=== PATIENT | female | born 1980 | race Caucasian/White ===

== ENCOUNTER → 2021-06-03 | Outpatient (CLI) | payer OTHER ==
[~2021-06-03] MED LIST: CYCL10TA2 PO; HYDR-2769 PO
--- NOTE | 2021-06-03 13:09 | PDOC1 ---
INITIAL PAIN CONSULT DATE OF SERVICE: DOS: DATE: 06/03/21 TIME: 13:01 CHIEF COMPLAINT: Chief Complaint: Low back and left greater than right lower extremity pain HISTORY OF PRESENT ILLNESS: 41-year-old female presents with history of pain low back left lower extremity greater than right present since 2011 for many years gradually increasing over the past 1 year or so. Patient reports is not from any specific injury or accident she is aware but has increased pain in the low back and the left lower extremity posterior gluteus lateral thigh anterior thigh medial thigh worse with walking standing changing positions better with sitting or resting. Patient reports that it is not awaken her from sleep generally feels better with laying down and does not affect her bowel bladder control does affect her ability to walk although she is not use any assistive devices to ambulate. Patient has had physical therapy as well as epidural injections in the past at an outside facility 2014 through 2018 which were very helpful with each of these. Patient has been doing physical therapy exercises that she learned from those sessions but is not been decreasing the pain at this time. 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 Patient is been taking [place] as well as Flexeril also Percocet and Mobic which are helpful only minimally. Patient scribes pain is intermittent intensity with numbness radiating pain in the low back sharp stabbing throbbing shooting in the back shooting in the leg radiating cramping and aching the low back as well as radiating into the left lower extremity as discussed. Patient also has some pain in the base the neck and the right shoulder and right upper extremity in a radicular fashion which is secondary as she rates her low back and left leg pain is much more problematic. Patient has cervical and lumbar spine films showing degenerative disc changes most significantly at the lower L4-5 and L5-S1 levels with retrolisthesis of L5 and S1. PAST MEDICAL HISTORY: PMH: Arthritis, bone spurs PREVIOUS SURGERIES: Past Surgical Hx: CURRENT MEDICATIONS: Current Meds: Active Scripts Medications Dose Route/Sig Max Daily Dose Days Date Category Cyclobenzaprine Hcl 10 Mg Tablet 1 Tab PO BID 06/03/21 Reported Hydrocodone-Apap 10-325 (Hydrocodone Bit/Acetaminophen) 1 Tab Tablet 1 Tab PO BID PRN 06/03/21 Reported FAMILY HISTORY: Family Hx: Cancer, heart disease, diabetes SOCIAL HISTORY: Social Hx: Patient is alcohol 2-5 beverages a week does not smoke says any illegal illicit recreational drugs is single lives locally in [facility] REVIEW OF SYSTEMS: ROS: Positive for those items mentioned in history of present illness, all systems are reviewed, otherwise negative ,and are complete full and well-documented on patient's chart. PHYSICAL EXAM: VS: Blood pressure is 137/88 pulse 65 respirations 18 temperature is 98.3 F height is 5 feet 7 inches weight is 238 pounds PE: PHYSICAL EXAMINATION: GENERAL: The patient is awake, alert, oriented, appropriate, very pleasant in demeanor. HEENT: Shows normocephalic, atraumatic. Extraocular movements are intact and symmetrical. Oral cavity: Mucous membranes moist and pink. Dentition is intact . NECK: Shows anterior throat supple without palpable lymphadenopathy noted. Swallow reflex symmetrical. CHEST: Shows normal on inspection. Breath sounds are clear bilaterally, no rales rhonchi or wheezes auscultated. HEART: Shows S1, S2 clear. No murmurs auscultated. ABDOMEN: Soft, nontender, nondistended, obese. No palpable organomegaly is noted. BACK: Shows spine grossly in the midline. Normal-appearing cervical lordotic curvature. Cervical paraspinous muscles show symmetrical inspection of the p atient is moderate tenderness diffusely in the inferior aspect of the paraspinous muscular more right than left also the superior medial trapezius on the right side. Patient shows good rotation motion cervical spine with lateral as well as full extension full forward flexion without significant difficulty. There is slightly increased thoracic kyphosis, some minor flattening of the lumbar lordotic curvature. Lumbar paraspinous muscles show symmetrical on inspection, on palpation shows some moderate tenderness diffusely throughout the upper, middle and lower distribution of the paraspinous muscles bilaterally and also into the lower thoracic paraspinous musculature, firm and tender, but without specific trigger points, without radiation of pain. The patient has good rotational motion of the lumbar spine, both laterally as well as extension and flexion without significant difficulty. No tenderness over the spinous processes, sacrum or sacroiliac regions. EXTREMITIES: Lower extremities show deep tendon reflexes 1+ in the patellar and tendo calcaneus tendons. Motor exam is 5 on a scale of 5 with right dorsiflexion, extension, quadriceps and hamstring flexion and 4/5 on the left. Peripheral pulses are 1+ posterior tibial. No peripheral edema is noted bilater ally. Lower extremities are warm and dry to touch, equal in color and appearance. Straight leg raise noted to be positive on the left at approximate 45 degrees decreased with knee flexion, right side is negative. Gaenslen's and Francisco's maneuvers are negative bilateral as well. The patient is able to stand, stand on her toes without significant difficulty or loss of balance, w alks with a normal-appearing gait does not appear to favor the right or left lower extremity significantly is not using any assistive devices to ambulate. Upper extremity show deep tendon reflexes 2+ in the bicep triceps tendons, motor exam strong with silver solderer strength rated 5 out of 5 as is bicep and tricep flexion. Shoulder shrug strong intact without loss of strength on resistance bilaterally. SKIN: Shows warm and dry, good turgor. No edema. No sores, rashes or bruising throughout. IMPRESSION: Impression: 41-year-old female with long history low back left lower extremity pain and radicular fashion Neck and right upper extremity pain in a radicular fashion Plain films x-rays lumbar and cervical spines as noted Arthritis Plan: Options were discussed with the patient including conservative medical management continued physical therapies and interventional techniques. Patient is currently doing physical therapy exercises taking oral analgesics without significant improvement, would like to pursue interventional techniques as these have worked well for her in the past. We discussed a lumbar epidural steroid injection using description as well as anatomical models to describe the procedure. Patient will wait for preauthorization with insurance provider once the team will return for translaminar epidural steroid injection at the L4-5 level for her L4-5 left-sided radiculopathy. GABRIELA GALLARDO MD Jun 03, 2021 13:09
== END ==
LOC: PNCL 09:32
PROVIDERS: ATTEND Anesthesiology
DX: M54.5 Low back pain (principal); M79.661 Pain in right lower leg
CPT/HCPCS: 99214; G0463

== ENCOUNTER → 2021-10-28 | Outpatient (CLI) | payer OTHER ==
[~2021-10-28] MED LIST changes: +CYCL10TA19 PO; -CYCL10TA2 PO; +IOHEXOL 180 MG/ML 10 ML VIAL. ONE; +methylPREDNISolone ACETATE 80 MG/ML VIAL. ONE
--- NOTE | 2021-10-28 14:46 | PDOC ---
Progress Note - Pain Clinic Date of Service: DOS: DATE: 10/28/21 TIME: 14:41 Diagnosis: Dx: Lumbar radiculopathy with lumbar degenerative disc disease History or Present Illness: HPI: 41-year-old female returns for follow-up status post evaluation and preauthorization for lumbar epidural steroid injection patient reports still significant pain in her low back and into the left lower extremity posterior gluteus posterior lateral thigh lateral anterior thigh anteromedial thigh medial lower leg to the foot patient reports some pain on the right side mostly on the worst on the left patient reports is aching and sharp tight shooting Burning stabbing radiating constant can be severe and unbearable with walking and standing. Patient reports new finding of pain base the neck and shoulders with pain rating mostly in the right upper extremity patient reports this is gotten much worse since she was last here does have a MRI scan ordered but is not been performed as of yet. Patient reports is radiating to the right upper extremity with some tingling and numbness in the right arm as well patient rates that as a 9 on scale 10 at all times worse with activity repetitive motions reaching overhead with the right hand as well. Patient reports no bowel or bladder incontinence. Physical Exam: VS: Blood pressure is 126/86 pulse 81 respirations 18 temperature 98.0 F weight is 230 pounds PE: PHYSICAL EXAMINATION: GENERAL: The patient is awake, alert, oriented, appropriate, very pleasant in demeanor HEENT: Shows normocephalic, atraumatic. Extraocular movements are intact and symmetrical. Oral cavity: Mucous membranes moist and pink. Dentition is intact. NECK: Shows anterior throat supple without palpable lymphadenopathy noted. Swallow reflex symmetrical. CHEST: Shows normal on inspection. Breath sounds are clear bilaterally, no rales or rhonchi. HEART: Shows S1, S2 clear. No murmurs auscultated. ABDOMEN: Soft, nontender, nondistended. No palpable organomegaly is noted. BACK: Shows spine grossly in the midline. Normal-appearing cervical lordotic curvature. Cervical paraspinous muscles show symmetrical with inspection, on palpation some moderate tenderness diffusely bilaterally diffusely without significant radiation more on the right than the left as well as into the superior medial trapezius. Patient shows full rotation of motion cervical spine both laterally as well as extension and flexion without significant difficulty. There is slightly increased thoracic kyphosis, some minor flattening of the lumbar lordotic curvature. Lumbar paraspinous muscles show symmetrical on inspection, on palpation shows some moderate tenderness diffusely throughout the upper, middle and lower distribution of the paraspinous muscles without specific trigger points, without radiation of pain. The patient has good rotational motion of the lumbar spine, both laterally as well as extension and flexion without significant difficulty. EXTREMITIES: Lower extremities show deep tendon reflexes 1+ in the patellar and tendo calcaneus tendons. Motor exam is 4 on a scale of 5 with right dorsiflexion, extension, quadriceps and hamstring flexion and 5/5 on the left. Peripheral pulses are 1+ posterior tibial. No peripheral edema is noted bilaterally. Lower extremities are warm and dry to touch, equal in color and appearance. 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 Shoulder shrug strong and intact without loss of strength on resistance bilaterally. SKIN: Shows warm and dry, good turgor. No edema. No sores, rashes or bruising throughout. Procedure: Procedure: Options were discussed with the patient. Patient's old chart was reviewed as her current medication regimen updated current review of systems updated today as well. We will proceed with a lumbar epidural steroid injection today with fluoroscopic guidance. Risks were discussed including but not limited to: Bleeding, infection, possibility of epidural hematoma and subsequent neurological compromise, dural puncture, headaches, spinal cord and/or nerve damage, side effects of steroid medication, and poor results regarding pain control. Patient understands and wished to proceed. Patient will return to the clinic in approximately 2 weeks for follow-up, was counseled as to return appointment, activity level, and side effects to be aware of. Medication Injected: Med Injected: Procedure is lumbar epidural steroid injection under local anesthetic using sterile prep and drape at the L4-5 level using C-arm fluoroscopic guidance in both AP and lateral views medications injected is 120 mg Depo-Medrol +10mL preservative-free normal saline and 2 mL contrast- condition at discharge is stable patient tolerated procedure well had no complications. Condition at Discharge: Condition at Discharge: Condition at discharge stable, patient tolerated procedure well and had no complications. GABRIELA GALLARDO MD Oct 28, 2021 14:46
--- NOTE | 2021-10-28 14:47 | PDOC4 ---
Procedure Note: ICD 10 Code: ICD 10 Code: M54.16 M51.36 Procedure Note: Patient was consented for lumbar epidural steroid injection fluoroscopic guidance. Risks were discussed including but not limited to: Bleeding, infection, possibility of epidural hematoma and subsequent neurological compromise, dural puncture, headaches, spinal cord and/or nerve damage, side effects of steroid medication, and poor results regarding pain control. Patient understands and wished to proceed. Procedure is lumbar epidural steroid injection under local anesthetic using sterile prep and drape at the L4-5 level using C-arm fluoroscopic guidance in both AP and lateral views medications injected is 120 mg Depo-Medrol +10mL preservative-free normal saline and 2 mL contrast- condition at discharge is stable patient tolerated procedure well had no complications. GABRIELA GALLARDO MD Oct 28, 2021 14:47
== END | disposition home or self-care (01) ==
LOC: PNCL 14:07
PROVIDERS: ATTEND Anesthesiology
DX: M51.16 Intervertebral disc disorders with radiculopathy, lumbar region (principal); Z79.899 Other long term (current) drug therapy
CPT/HCPCS: 62323; J1040; Q9965

== ENCOUNTER → 2021-11-03 | Outpatient (CLI) | payer OTHER ==
[~2021-11-03] MED LIST changes: -IOHEXOL 180 MG/ML 10 ML VIAL. ONE; -methylPREDNISolone ACETATE 80 MG/ML VIAL. ONE
--- NOTE | 2021-11-03 13:37 | NUR ---
Pt. called clinic today, she cannot get off work to fulfill her office visit today post epidural steroid injection treatment. Pt. states she is 100% improved. Able to sleep and work much better. Pt. has had no side effects from the treatment or any new health issues. Pt. has a follow up appt in early Nov. and was instructed to cancel that appt if she is still doing this much better from the [facility]. We will still, in the meantime, request an additional PA from her insurance carrier for a second [facility] if needed. Pt. JANES. Pt. transferred to Dr. Martinez for a phone interview. Walter Gudino RN
--- NOTE | 2021-11-03 13:41 | PDOC ---
Progress Note - Pain Clinic Date of Service: DOS: DATE: 11/03/21 TIME: 13:38 Diagnosis: Dx: Lumbar radiculopathy with lumbar degenerative disc disease History or Present Illness: HPI: Telemedicine visit today with patient's identity verified with full date of as well as full name, total time spent 14 minutes and 41-year-old female follow-up status post lumbar epidural steroid injection x1. Patient reports near 100% improvement in her right low back and left lower extremity pain is increasing her activity with distance walking doing household activities work activities sleeping better at night traveling with greater ease and comfort patient reports still some pain in the low back left lower extremity posterior gluteus posterior lateral thigh lateral anterior thigh and anterior medial lower leg but much improved again near 100%, with no new motor or sensory deficits no bowel or bladder incontinence. Patient reports she has been decreasing her hydrocodone significantly and has had a few days where she is not used none of it also is increasing her activity with greater standing for longer periods of walking performing her work activities much greater ease and again sleeping much better at night. Patient is very pleased with her progress thus far. Patient reports still significant radiation of pain in an L4-5 dermatomal distribution on the left and we will preauthorize patient for a second lumbar epidural steroid injection patient doing very well after the first injection but with still some persistent pain in the left L4-5 dermatomal distribution in a radicular fashion although significantly improved overall. Once approved, patient will return for a translaminar approach L4-5 level lumbar epidural steroid injection with fluoroscopic guidance. In the meantime, patient will continue with stretching strength exercises daily and oral analgesics as necessary. Physical Exam: PE: GABRIELA GALLARDO MD Nov 03, 2021 13:41
== END | disposition home or self-care (01) ==
LOC: PNCL 13:36
PROVIDERS: ATTEND Anesthesiology
DX: M51.16 Intervertebral disc disorders with radiculopathy, lumbar region (principal); Z79.899 Other long term (current) drug therapy
CPT/HCPCS: 99212; G0463

== ENCOUNTER → 2021-12-10 | Outpatient (CLI) | payer OTHER ==
[~2021-12-10] MED LIST changes: +DEXAMETHASONE PRES.FREE 10 MG/ML VIAL. ONE; +IOHEXOL 180 MG/ML 10 ML VIAL. ONE
--- NOTE | 2021-12-10 13:38 | PDOC ---
Progress Note - Pain Clinic Date of Service: DOS: DATE: 12/10/21 TIME: 13:34 Diagnosis: Dx: Lumbar radiculopathy with lumbar degenerative disc disease Cervical radiculopathy History or Present Illness: HPI: 41-year-old female returns for follow-up status post lumbar epidural steroid injection x1 patient reports did very well with that 100% improvement for period of time pain returned though over the past few weeks with pain in the low back and left lower extremity posterior gluteus posterior lateral thigh lateral anterior thigh anteromedial thigh on the left side patient reports also new pain at the base of the neck and right upper extremity pain radiating the right arm in the posterior deltoid triceps biceps into the forearm and hand which is becoming much worse with numbness and tingling in the hand as well patient reports that the pain in the low back is on the left side the shoulders on the right side as well as the neck and right arm patient reports her pain is a 9 on scale 10 is worse over the past week 6-7 on average of 3 to [place] is a 7 today patient scribes aching dull tight and sharp shooting in the leg shooting in the right arm burning and cramping in the base of neck and shoulder as well as in the low back. Patient reports no loss of motor function with significant fatigability with the left leg as well as the right arm with repetitive motions reaching overhead with the right arm and reaching forward with weightbearing. Patient reports the pain is returning in the low back and left leg still not to baseline patient reports no bowel or bladder incontinence no loss of motor function with significant fatigability left lower extremity as well as the right upper extremity in the right upper extremity disturbing sleep more now in the leg and back. Patient reports her mobility was better after last injection note distance walking doing household activities work activities and try with greater ease and comfort as well sleeping better at night. Physical Exam: VS: Blood pressure is 128/85 pulse 87 respirations 16 temperature is 98.1 F height 5 feet 8 inches weight is 227 pounds. PE: PHYSICAL EXAMINATION: GENERAL: The patient is awake, alert, oriented, appropriate, very pleasant in demeanor HEENT: Shows normocephalic, atraumatic. Extraocular movements are intact and symmetrical. Oral cavity: Mucous membranes moist and pink. Dentition is i ntact. NECK: Shows anterior throat supple without palpable lymphadenopathy noted. Swallow reflex symmetrical. CHEST: Shows normal on inspection. Breath sounds are clear bilaterally, no rales or rhonchi. HEART: Shows S1, S2 clear. No murmurs auscultated. ABDOMEN: Soft, nontender, nondistended. No palpable organomegaly is noted. BACK: Shows spine grossly in the midline. Normal-appearing cervical lordotic curvature. Cervical paraspinous muscles show symmetrical inspection, palpation some moderate tenderness diffusely at the upper middle lower decrease the paraspinous muscles more to the right superior medial trapezius without trigger points but with significant tenderness on the right side. Patient shows good rotation motion cervical spine with lateral as well as full extension full forward flexion without significant increase in pain. There is slightly increased thoracic kyphosis, some minor flattening of the lumbar lordotic curvature. Lumbar paraspinous muscles show symmetrical on inspection, on palp ation shows some moderate tenderness diffusely throughout the upper, middle and lower distribution of the paraspinous muscles without specific trigger points, without radiation of pain. The patient has good rotational motion of the lumbar spine, both laterally as well as extension and flexion without significant difficulty. No tenderness over the spinous processes, sacrum or sacroiliac regions. EXTREMITIES: Lower extremities show deep tendon reflexes 1+ in the patellar and tendo calcaneus tendons. Motor exam is 5 on a scale of 5 with right dorsiflexion, extension, quadriceps and hamstring flexion and 4/5 on the left. Peripheral pulses are 1+ posterior tibial. No peripheral edema is noted bilaterally. Lower extremities are warm and dry to touch, equal in color and appearance. 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 Shoulder shrug is strong and intact without loss of strength on resistance bilaterally. SKIN: Shows warm and dry, good turgor. No edema. No sores, rashes or bruising throughout. Procedure: Procedure: Options discussed with patient. Patient's old chart was reviewed as her current medication regimen updated current review of systems updated today as well. We will proceed with a lumbar epidural steroid injection today with fluoroscopic guidance. Risks were discussed including but not limited to: Bleeding, infection, possibility of epidural hematoma and subsequent neurological compromise, dural puncture, headaches, spinal cord and/or nerve damage, side effects of steroid medication, and poor results regarding pain control. Patient understands and wished to proceed. Patient will return to the clinic in approximate 2 weeks for follow-up, was counseled as to return appointment, [place], and side effect to be aware of. We will order MRI scan cervical spine to better differentiate patient's right radicular quality pain. Patient also be given a note for work diagnosis and with excuse for attending her visit today. Medication Injected: Med Injected: Procedure is lumbar epidural steroid injection under local anesthetic using sterile prep and drape at the L4-5 level using C-arm fluoroscopic guidance in both AP and lateral views medications injected is 20 mg dexamethasone +10mL preservative-free normal saline and 2 mL contrast- condition at discharge is stable patient tolerated procedure well had no complications. Condition at Discharge: Condition at Discharge: Condition at discharge stable, paced tolerated the procedure well and had no complications. GABRIELA GALLARDO MD Dec 10, 2021 13:38
--- NOTE | 2021-12-10 13:39 | PDOC4 ---
Procedure Note: ICD 10 Code: ICD 10 Code: M54.16 M51.36 Procedure Note: Patient was consented for lumbar epidural steroid injection fluoroscopic guidance. Risks were discussed including but not limited to: Bleeding, infection, possibility of epidural hematoma and subsequent neurological compromise, dural puncture, headaches, spinal cord and/or nerve damage, side effects of steroid medication, and poor results regarding pain control. Patient understands and wished to proceed. Procedure is lumbar epidural steroid injection under local anesthetic using sterile prep and drape at the L4-5 level using C-arm fluoroscopic guidance in both AP and lateral views medications injected is 20 mg dexamethasone +10mL preservative-free normal saline and 2 mL contrast- condition at discharge is stable patient tolerated procedure well had no complications. GABRIELA GALLARDO MD Dec 10, 2021 13:39
== END | disposition home or self-care (01) ==
LOC: PNCL 12:49
PROVIDERS: ATTEND Anesthesiology
DX: M51.16 Intervertebral disc disorders with radiculopathy, lumbar region (principal); Z79.899 Other long term (current) drug therapy; Z88.8 Allergy status to other drugs, medicaments and biological substances
CPT/HCPCS: 62323; J1100; Q9965